=== PATIENT | male | born 1980 | race African-American/Black ===

== ENCOUNTER 2017-07-23 15:07 | Emergency (ER) | payer OTHER ==
--- NOTE | 2017-07-23 15:54 | ER Document Report ---
HPI - HPI Patient complains to provider of: Sleepiness Onset: Other Onset/Duration: Persistent - 4 months Quality of pain: No pain Pain Level: Denies Context: Patient presents complaining of excessive daytime sleepiness for the past 3-4 months. Patient states that he will typically sleep 8 hours each night but during the daytime he will have fatigue and will frequently fall asleep and starts snoring during the daytime. Patient denies any concerns about depression Associated Symptoms: Other - Excessive daytime sleepiness Exacerbated by: Denies Relieved by: Denies Similar symptoms previously: No Recently seen / treated by doctor: No - ROS ROS below otherwise negative: Yes Systems Reviewed and Negative: Yes All other systems reviewed and negative - CONSTITUTIONAL Constitutional: DENIES: Fever, Chills - EENT EENT: DENIES: Sore Throat, Ear Pain, Eye problems - NEURO Neurology: DENIES: Headache, Weakness, Vision blurred, Dizzinesss / Vertigo - CARDIOVASCULAR Cardiovascular: DENIES: Chest pain - RESPIRATORY Respiratory: DENIES: Trouble Breathing - Snores alot, Coughing - GASTROINTESTINAL Gastrointestinal: DENIES: Abdominal Pain, Black / Bloody Stools - MUSCULOSKELETAL Musculoskeletal: DENIES: Extremity pain Past Medical History - General Information source: Patient - Social History Smoking Status: Unknown if Ever Smoked Frequency of alcohol use: Occasional Drug Abuse: None 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 IN LAST 30 DAYS: No - HEENT HEENT: Atraumatic, Normal ENT Exam, Normocephalic - NECK Neck: Normal Inspection - RESPIRATORY Respiratory: Breath Sounds Normal, No Respiratory Distress O2 Sat by Pulse Oximetry: 98 - CARDIOVASCULAR Cardiovascular: Regular Rate, Regular Rhythm, No Murmur - BACK Back: Normal Inspection - MUSCULOSKELETAL/EXTREMETIES Musculoskeletal/Extremeties: MAEW - NEURO Level of Consciousness: Awake, Alert, Appropriate Motor/Sensory: No Motor Deficit - DERM Integumentary: Warm, Dry, No Rash Course - Re-evaluation Re-evalutation: 02/20/18 16:02 Patient is nontoxic in appearance without any difficulty breathing. Patient denies any feelings of depression. Patient presents with history turning for sleep apnea. Patient advised that sleep apnea can lead to heart disease as well as stroke. Patient encouraged to follow-up with the primary doctor to obtain outpatient sleep study to definitively diagnose this. Patient verbalized understanding and agrees with plan of care. - Vital Signs Vital signs: Temp Pulse Resp BP Pulse Ox 99.1 F 71 18 137/82 H 98 07/23/17 15:30 07/23/17 15:30 07/23/17 15:30 07/23/17 15:30 07/23/17 15:30 Discharge - Discharge Clinical Impression: Excessive sleepiness Condition: Stable Disposition: HOME, SELF-CARE Additional Instructions: Return immediately for any new or worsening symptoms Followup with your primary care provider, call tomorrow to make a followup appointment You have symptoms concerning for sleep apnea. This is diagnosed by having a sleep study performed. A primary doctor can order the study for you in follow- up on the results. There are bite blocks that you can buy [id number] to help with snoring. Forms: Return to Work Referrals: KEIRA RAMIREZ MD [ACTIVE STAFF] - Follow up as needed IRINA GAFFNEY MD [ACTIVE STAFF] - Follow up as needed [facility] [Provider Group] - Follow up as needed
[2017-07-23 16:16] VITALS: BP 152/87
== END 2017-07-23 16:30 | disposition home or self-care (01) ==
LOC: ER 15:07
DX: G47.10 Hypersomnia, unspecified (principal); R53.83 Other fatigue; R06.83 Snoring
CPT/HCPCS: 99283

== ENCOUNTER 2019-04-16 18:50 | Emergency (ER) | payer OTHER ==
[2019-04-16] MEDS ORDERED: NORMAL SALINE 1000 ML 1,000 ML IV ONE ×2 (20:45→22:36)
[2019-04-16] MEDS ORDERED: KETOROLAC TROMETHAMINE INJ/PF 30 MG/1 ML SDV IV ONE (20:45)
[2019-04-16] MEDS ORDERED: ACETAMINOPHEN 325 MG TABLET PO ONE (20:45)
[2019-04-16] MEDS ORDERED: DIAZEPAM INJ 10 MG/2 ML DISP.SYRIN IV ONE (20:46)
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
[2019-04-16 21:21] LABS: ABSOLUTE LYMPHOCYTES (AUTO) 0.9 10^3/uL (0.5-4.7); ABSOLUTE MONOCYTES (AUTO) 0.9 10^3/uL (0.1-1.4); ABSOLUTE NEUT (AUTO) 9.1 10^3/uL (1.7-8.2); BASOPHILS % (AUTO) 0.3 % (0-2); EOSINOPHILS % (AUTO) 0.2 % (0-6); HEMATOCRIT 43.7 % (37.9-51.0); HEMOGLOBIN 14.8 g/dL (13.5-17.0); LYMPHOCYTES % (AUTO) 7.9 % (13-45); MEAN CORPUSCULAR HEMOGLOBIN 29.6 pg (27.0-33.4); MEAN CORPUSCULAR HGB CONC 33.9 g/dL (32.0-36.0); MEAN CORPUSCULAR VOLUME 87 fl (80-97); MONOCYTES % (AUTO) 8.2 % (3-13); PLATELET COUNT 289 10^3/uL (150-450); RED CELL DISTRIBUTION WIDTH 14.5 % (11.5-14.0); SEGMENTED NEUTROPHILS % (AUTO) 83.4 % (42-78); TOTAL CELLS COUNTED % (AUTO) 100 %; WHITE BLOOD COUNT 10.9 10^3/uL (4.0-10.5)
[2019-04-16 21:34] LABS: ALBUMIN 4.1 g/dL (3.5-5.0); ALKALINE PHOSPHATASE 54 U/L (38-126); ANION GAP 7 (5-19); ASPARTATE AMINO TRANSFERASE 23 U/L (17-59); BLOOD UREA NITROGEN 15 mg/dL (7-20); CALCIUM 9.8 mg/dL (8.4-10.2); CARBON DIOXIDE 31 mmol/L (22-30); CHLORIDE 101 mmol/L (98-107); GLUCOSE 77 mg/dL (75-110); POTASSIUM 4.3 mmol/L (3.6-5.0); TOTAL PROTEIN 7.1 g/dL (6.3-8.2)
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
[2019-04-16] MEDS ORDERED: ONDANSETRON HCL INJ/PF 4 MG/2 ML SDV IV ONE (22:37)
[2019-04-16] MEDS ORDERED: MORPHINE SULFATE 10 MG/ML INJ IV ONE (22:37)
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
[2019-04-17 01:11] VITALS: BP 146/80
== END 2019-04-17 01:11 | disposition home or self-care (01) ==
LOC: ER 18:50
DX: S63.094A Other dislocation of right wrist and hand, initial encounter (principal); S30.1XXA Contusion of abdominal wall, initial encounter; R07.9 Chest pain, unspecified; R10.9 Unspecified abdominal pain; M25.552 Pain in left hip; M25.532 Pain in left wrist; M79.605 Pain in left leg; M54.2 Cervicalgia; M79.10 Myalgia, unspecified site; V49.40XA Driver injured in collision with unspecified motor vehicles in traffic accident, initial encounter; R03.0 Elevated blood-pressure reading, without diagnosis of hypertension
CPT/HCPCS: 36415; 85025; 80053; 73502; 73590; 73110; 70450; 71260; 72125; 74177; J2270; J2405; J7030; L3908